=== PATIENT | female | born 1965 | race Caucasian/White ===

== ENCOUNTER 2018-01-25 20:32 | Inpatient (IN) | payer OTHER ==
--- NOTE | 2018-01-25 20:46 | C.PDOC ---
Time Seen by Provider: 01/25/18 20:43 Chief Complaint (Nursing): High Blood Pressure Past Medical History - Medical History PMH: HTN - Social History Hx Tobacco Use: No Hx Alcohol Use: No Hx Substance Use: No - Immunization History Hx Tetanus Toxoid Vaccination: No Hx Influenza Vaccination: Yes Hx Pneumococcal Vaccination: No Disposition Counseled Patient/Family Regarding: Studies Performed, Diagnosis - Disposition Disposition Time: 20:43
--- NOTE | 2018-01-25 20:51 | C.PDOC ---
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 No weakness, no slurred speech. No f/c/n/v. Tolerating own secretions Time Seen by Provider: 01/25/18 20:43 Chief Complaint (Nursing): High Blood Pressure History Per: Patient History/Exam Limitations: no limitations Onset/Duration Of Symptoms: Mins Current Symptoms Are (Timing): Gone Severity: Mild Pain Scale Rating Of: 3 Past Medical History Reviewed: Historical Data, Nursing Documentation, Vital Signs Vital Signs: Last Vital Signs Temp 98 F 01/25/18 20:35 Pulse 82 01/25/18 22:46 Resp 18 01/25/18 22:46 BP 129/87 01/25/18 22:46 Pulse Ox 100 01/25/18 22:46 - Medical History PMH: HTN Family History: States: No Known Family Hx - Social History Hx Tobacco Use: No Hx Alcohol Use: No Hx Substance Use: No - Immunization History Hx Tetanus Toxoid Vaccination: No Hx Influenza Vaccination: Yes Hx Pneumococcal Vaccination: No Review Of Systems Constitutional: Negative for: Fever, Chills Eyes: Negative for: Vision Change ENT: Negative for: Throat Pain Cardiovascular: Negative for: Chest Pain Respiratory: Negative for: Shortness of Breath Gastrointestinal: Negative for: Nausea, Vomiting Genitourinary: Negative for: Dysuria Musculoskeletal: Negative for: Back Pain Skin: Negative for: Rash Neurological: Negative for: Weakness Psych: Negative for: Anxiety Physical Exam - Physical Exam Appears: Non-toxic, No Acute Distress Skin: Warm, Dry Head: Normacephalic Eye(s): bilateral: Normal Inspection Oral Mucosa: Moist Tongue: Normal Appearing Lips: Normal Appearing Neck: Trachea Midline, Supple Chest: Symmetrical Cardiovascular: Rhythm Regular Respiratory: No Rales, No Rhonchi, No Wheezing Gastrointestinal/Abdominal: Soft, No Tenderness, No Distention Back: No CVA Tenderness Extremity: Normal ROM Extremity: Bilateral: Atraumatic, No Pedal Edema, Normal Color And Temperature Pulses: Left Dorsalis Pedis: Normal, Right Dorsalis Pedis: Normal Neurological/Psych: Oriented x3, Normal Speech, Normal Cognition Gait: Steady ED Course And Treatment - Laboratory Results Result Diagrams: 01/25/18 20:51 01/25/18 20:51 Pulse Ox Interpretation: Normal Critical Care Time - Critical Care Note Total Time (in mins): 30 Documented critical care: time excludes all time spent performing seperately billable procedures. NIHSS Stroke Scale - Date/Time Evaluation Performed Date Performed: 01/25/18 Time Performed: 20:39 When Was NIHSS Performed: Baseline - How Severe is the Stroke Level of Consciousness: 0=Alert LOC to Questions: 0=Both comments correct LOC to commands: 0=Obeys both correctly Best Gaze: 0=Normal Visual: 0=No visual loss Facial: 0=Normal Motor Arm - Left: 0=No drift Motor Arm - Right: 0=No drift Motor Leg - Left: 0=No drift Motor Leg - Right: 0=No drift Limb Ataxia: 0=Absent Sensory: 0=Normal Best Language: 0=No aphasia Dysarthia: 0=Normal articulation Extinction & Inattention (Neglect): 0=Normal, no object Score: 0 Disposition Discussed With : Dejuan Cabrera Comment: accepted the pt on his service and took over the care at 11:33 PM Doctor Will See Patient In The: Hospital Counseled Patient/Family Regarding: Studies Performed, Diagnosis - Disposition Disposition: HOSPITALIZED Disposition Time: 20:47 Condition: FAIR Forms: [facility] (Macedonian) - POA Present On Arrival: Poor Glycemic Control - Clinical Impression Clinical Impression: Hypertension, Paresthesia, TIA (transient ischemic attack) Decision To Admit - . Patient Diagnosis: Hypertension, Paresthesia, TIA (transient ischemic attack)
[2018-01-25 20:55] LABS: BASO # 0.1 K/uL (0.0-0.2); BASO % 0.8 % (0.0-2.0); EOS # 0.1 K/uL (0.0-0.7); EOS % 1.3 % (0.0-4.0); HEMOGLOBIN 13.3 g/dL (11.0-16.0); LYMPH # 4.7 K/uL (1.0-4.3); MEAN CELL VOLUME 85.2 fL (81.0-99.0); MEAN CORPUSCULAR HEMOGLOBIN 29.1 pg (27.0-31.0); MEAN CORPUSCULAR HGB CONC 34.2 g/dL (33.0-37.0); MEAN PLATELET VOLUME 9.5 fL (7.2-11.7); MONO # 0.9 K/uL (0.0-0.8); MONO % 9.5 % (0.0-10.0); NEUT # 3.6 K/uL (1.8-7.0); NEUT % 38.4 % (50.0-75.0); NRBC % 0.2 % (0.0-2.0); RBC 4.56 Mil/uL (3.80-5.20); RED CELL DISTRIBUTION WIDTH 13.2 % (11.5-14.5); WHITE BLOOD COUNT 9.4 K/uL (4.8-10.8)
[2018-01-25 21:05] LABS: INR 1.1; PROTHROMBIN TIME 11.7 SECONDS (9.7-12.2)
[2018-01-25 21:08] LABS: ALB/GLOB RATIO 1.5 (1.0-2.1); ALBUMIN 4.6 g/dL (3.5-5.0); ALT/SGPT 55 U/L (9-52); AST/SGOT 41 U/L (14-36); BLOOD UREA NITROGEN 18 mg/dL (7-17); CALCIUM 9.3 mg/dl (8.6-10.4); GFR AFRICAN-AMERICAN > 60; GFR NON-AFRICAN AMERICAN > 60; HDL CHOLESTEROL 41 mg/dL (30-70)
[2018-01-25] MEDS ORDERED: Sodium Chloride 0.9% 1,000 ML ONE (21:08)
[2018-01-25 21:19] LABS: LDL CHOLESTEROL 100 mg/dL (0-129)
[2018-01-26 04:07] LABS: BASO # 0.1 K/uL (0.0-0.2); BASO % 0.8 % (0.0-2.0); EOS # 0.1 K/uL (0.0-0.7); EOS % 0.9 % (0.0-4.0); HEMOGLOBIN 12.4 g/dL (11.0-16.0); LYMPH # 2.3 K/uL (1.0-4.3); LYMPH % 29.7 % (20.0-40.0); MEAN CELL VOLUME 85.1 fL (81.0-99.0); MEAN CORPUSCULAR HEMOGLOBIN 28.9 pg (27.0-31.0); MEAN CORPUSCULAR HGB CONC 33.9 g/dL (33.0-37.0); MEAN PLATELET VOLUME 9.3 fL (7.2-11.7); MONO # 0.6 K/uL (0.0-0.8); MONO % 7.3 % (0.0-10.0); NEUT # 4.7 K/uL (1.8-7.0); NEUT % 61.3 % (50.0-75.0); NRBC % 0.2 % (0.0-2.0); RBC 4.3 Mil/uL (3.80-5.20); RED CELL DISTRIBUTION WIDTH 13.1 % (11.5-14.5); WHITE BLOOD COUNT 7.7 K/uL (4.8-10.8)
[2018-01-26 04:22] LABS: ALB/GLOB RATIO 1.3 (1.0-2.1); ALBUMIN 4.1 g/dL (3.5-5.0); ALT/SGPT 53 U/L (9-52); AST/SGOT 33 U/L (14-36); BLOOD UREA NITROGEN 12 mg/dL (7-17); CALCIUM 8.6 mg/dl (8.6-10.4); GFR AFRICAN-AMERICAN > 60; GFR NON-AFRICAN AMERICAN > 60
[2018-01-26] MEDS ORDERED: Sodium Chloride 0.9% 1,000 ML ONE (07:26)
[2018-01-26] MEDS: Sodium Chloride 0.9% 1,000 ML IV SCH ×2 (07:27→13:28)
--- NOTE | 2018-01-26 08:09 | CT ---
Date of service: 01/25/2018 PROCEDURE: CT HEAD WITHOUT CONTRAST. HISTORY: Code Stroke COMPARISON: None available. TECHNIQUE: Axial computed tomography images were obtained through the head/brain without intravenous contrast. Radiation dose: Total exam DLP = 720 mGy-cm. This CT exam was performed using one or more of the following dose reduction techniques: Automated exposure control, adjustment of the mA and/or kV according to patient size, and/or use of iterative reconstruction technique. FINDINGS: HEMORRHAGE: No intracranial hemorrhage. BRAIN: Mild diffuse cerebral atrophy present consistent with the patient's age. Benign bilateral globus pallidus calcifications are present.Scattered focal lucencies in the subcortical and periventricular white matter suggestive for chronic microvascular ischemic change. VENTRICLES: Unremarkable. No hydrocephalus. CALVARIUM: Unremarkable. PARANASAL SINUSES: Unremarkable as visualized. No significant inflammatory changes. MASTOID AIR CELLS: Unremarkable as visualized. No inflammatory changes. OTHER FINDINGS: None. IMPRESSION: No acute intracranial abnormality. Mild diffuse cerebral atrophy. Chronic microvascular ischemic changes. If there is persistent concern for acute ischemic change, consider correlation with MRI. These findings were preliminarily reported at 9:04 p.m. on 01/25/[address]Navid Carey from [facility].
[2018-01-26] MEDS: Aspirin 325 mg EC Tablets PO SCH (09:53)
--- NOTE | 2018-01-26 10:32 | RAD ---
HISTORY: Code Stroke COMPARISON: None available. TECHNIQUE: Chest, one view. FINDINGS: Examination limited by habitus LUNGS: No focal consolidation. Please note that chest x-ray has limited sensitivity for the detection of pulmonary masses. PLEURA: No significant pleural effusion identified. No definite pneumothorax . CARDIOVASCULAR: The cardiomediastinal silhouette appears within normal limits of size. OSSEOUS STRUCTURES: Degenerative changes. VISUALIZED UPPER ABDOMEN: Unremarkable. OTHER FINDINGS: None. IMPRESSION: No focal consolidation, significant pleural effusion, or definite pneumothorax identified.
--- NOTE | 2018-01-26 13:37 | CP.PCM.PN ---
Subjective - Date & Time of Evaluation Date of Evaluation: 01/26/18 Time of Evaluation: 13:35 - Subjective Subjective: COMPREHENSIVE HISTORY & PHYSICAL EXAM HPI Patient is admitted for left-sided numbness of the face which started a few hours prior to admission. There is no motor or sensory deficits no seizures no syncope. Patient was evaluated by emergency room and also neuro hospitalist CAT scan of the head was negative for any acute infarct. Patient is now admitted for further workup. Patient with history of hypertension on medication. Patient numbness on the patient has resolved when presented to ER PAST HIST. PERSONAL HIST: Smoking. N Alcohol. N Allergy N Travel_- . FAMILY HIST : ROS : Constitutional: Negative for weight change, chills, night sweats, fatigue and usage of assist device. Eyes: Negative for redness, swelling, itching, discharge, vision changes, blurry vision, double vision, glaucoma, cataracts, Ears: Negative for hearing loss, ringing, , tinnitus, vertigo Nose: Negative for rhinorrhea, stuffiness, sniffing, itching, postnasal drip, discoloration, nasal congestion and epistaxis. Throat: Negative for throat clearing, sore throat, hoarseness, difficulty swallowing and difficulty speaking. Respiratory: Negative for cough, , sputum production, chest tightness, wheezing, pleuritic chest pain ,daytime somnolence, chronic cough, hemoptysis, snoring at night, Cardiovascular: Negative for chest pain, palpitations, orthopnea, PND, Edema of legs, leg cramps, angina, claudication, , irregular heartbeat, Neurology: Negative for irritability, muscle weakness, numbness and tingling, seizures, tremors, migraines, slurred speech, syncope, memory loss, mood changes , recurrent headaches Gastrointestinal: Negative for difficulty swallowing, diarrhea, constipation, black stools, rectal bleeding, nausea, flatulence, reflux, poor appetite, changes in bowel habits, abdominal pain Genitourinary: Negative for frequent urination, hematuria, discharge, incontinence, urinary retention, frequent UTI, Psychiatric: Negative for depression, anxiety/panic, suicidal tendencies, Musculoskeletal: Negative for swollen joints, back pain, , neck pain, morning stiffness of joints, . Skin: Negative for rash, ulcers, itching, dry skin and pigmented lesions. P/E: Constitutional: Appears stated age and in no apparent distress. Head: Normocephalic. Ears: External ear canals patent without inflammation. Tympanic membranes intact with normal light reflex and landmark. Eyes: Pupils are central, bilaterally equal, symmetrical and reacts to light with normal movements and no icterus or pallor. Nose: External nares are patent. Mucosa is pink Mouth-Throat: Good general appearance and condition. No post-pharyngeal/oropharyngeal erythema and tonsillar hypertrophy. Good dental hygiene. Neck-Lymphatic: Neck is supple with normal ROM, no thyromegaly, lymph nodes or masses. JVD is normal with no carotid bruit. Lungs: Clear to percussion and auscultation with bilateral normal air entry. Cardiovascular: S1 and S2 are normal with no murmurs, gallops and rub. GI Exam: No hepatomegaly. Abdomen is soft and non-tender. No Organomegaly , masses or hernias are evident and bowel sounds are normal and active. Neurology: Higher function and all cranial nerves intact, with no gross motor or sensory deficit. Superficial and deep reflexes are normal with downwards planters. No cerebellar deficit with normal gait. Musculoskeletal: No tender spots with normal curvature of the spine with no swelling or restricted ROM of the small and large joints. Extremities: Homans sign absent. Intact pulses with no pitting edema, calf tenderness or skin color changes. Skin: No rash, eruptions or abnormal skin pigmentation LAB/RADIOLOGY: ASSESMENT : History of transient ischemic episode, rule out cerebrovascular accident. Hypertension PLAN: Plan is ordered Objective - Vital Signs/Intake and Output Vital Signs (last 24 hours): Temp Pulse Resp BP Pulse Ox 98.2 F 89 18 149/94 H 100 01/26/18 10:27 01/26/18 10:28 01/26/18 10:27 01/26/18 10:27 01/26/18 10:27 - Medications Medications: Current Medications Amlodipine Besylate (Norvasc) 10 mg PO DAILY [facility] Last Admin: 01/26/18 11:01 Dose: 10 mg Aspirin (Ecotrin) 325 mg PO DAILY [facility] Last Admin: 01/26/18 09:53 Dose: 325 mg Heparin Sodium (Porcine) (Heparin) 5,000 units SC BID [facility] Last Admin: 01/26/18 09:53 Dose: 5,000 units Sodium Chloride (Sodium Chloride 0.9%) 1,000 mls @ 100 mls/hr IV .Q10H [facility] Last Admin: 01/26/18 13:28 Dose: 100 mls/hr Rosuvastatin Calcium (Crestor) 10 mg PO HS G[facility] - Labs Labs: 01/26/18 04:02 01/26/18 04:02 PT 11.7 SECONDS (9.7-12.2) 01/25/18 20:51 INR 1.1 01/25/18 20:51 APTT 33 SECONDS (21-34) 01/25/18 20:51
--- NOTE | 2018-01-26 13:38 | CP.PCM.HP ---
History of Present Illness - History of Present Illness History of Present Illness: COMPREHENSIVE HISTORY & PHYSICAL EXAM HPI Patient is admitted for left-sided numbness of the face which started a few hours prior to admission. There is no motor or sensory deficits no seizures no syncope. Patient was evaluated by emergency room and also neuro hospitalist CAT scan of the head was negative for any acute infarct. Patient is now admitted for further workup. Patient with history of hypertension on medication. Patient numbness on the patient has resolved when presented to ER PAST HIST. PERSONAL HIST: Smoking. N Alcohol. N Allergy N Travel_- . FAMILY HIST : ROS : Constitutional: Negative for weight change, chills, night sweats, fatigue and usage of assist device. Eyes: Negative for redness, swelling, itching, discharge, vision changes, blurry vision, double vision, glaucoma, cataracts, Ears: Negative for hearing loss, ringing, , tinnitus, vertigo Nose: Negative for rhinorrhea, stuffiness, sniffing, itching, postnasal drip, discoloration, nasal congestion and epistaxis. Throat: Negative for throat clearing, sore throat, hoarseness, difficulty swallowing and difficulty speaking. Respiratory: Negative for cough, , sputum production, chest tightness, wheezing, pleuritic chest pain ,daytime somnolence, chronic cough, hemoptysis, snoring at night, Cardiovascular: Negative for chest pain, palpitations, orthopnea, PND, Edema of legs, leg cramps, angina, claudication, , irregular heartbeat, Neurology: Negative for irritability, muscle weakness, numbness and tingling, seizures, tremors, migraines, slurred speech, syncope, memory loss, mood changes , recurrent headaches Gastrointestinal: Negative for difficulty swallowing, diarrhea, constipation, black stools, rectal bleeding, nausea, flatulence, reflux, poor appetite, changes in bowel habits, abdominal pain Genitourinary: Negative for frequent urination, hematuria, discharge, incontinence, urinary retention, frequent UTI, Psychiatric: Negative for depression, anxiety/panic, suicidal tendencies, Musculoskeletal: Negative for swollen joints, back pain, , neck pain, morning stiffness of joints, . Skin: Negative for rash, ulcers, itching, dry skin and pigmented lesions. P/E: Constitutional: Appears stated age and in no apparent distress. Head: Normocephalic. Ears: External ear canals patent without inflammation. Tympanic membranes intact with normal light reflex and landmark. Eyes: Pupils are central, bilaterally equal, symmetrical and reacts to light with normal movements and no icterus or pallor. Nose: External nares are patent. Mucosa is pink Mouth-Throat: Good general appearance and condition. No post-pharyngeal/oropharyngeal erythema and tonsillar hypertrophy. Good dental hygiene. Neck-Lymphatic: Neck is supple with normal ROM, no thyromegaly, lymph nodes or masses. JVD is normal with no carotid bruit. Lungs: Clear to percussion and auscultation with bilateral normal air entry. Cardiovascular: S1 and S2 are normal with no murmurs, gallops and rub. GI Exam: No hepatomegaly. Abdomen is soft and non-tender. No Organomegaly , masses or hernias are evident and bowel sounds are normal and active. Neurology: Higher function and all cranial nerves intact, with no gross motor or sensory deficit. Superficial and deep reflexes are normal with downwards planters. No cerebellar deficit with normal gait. Musculoskeletal: No tender spots with normal curvature of the spine with no swelling or restricted ROM of the small and large joints. Extremities: Homans sign absent. Intact pulses with no pitting edema, calf tenderness or skin color changes. Skin: No rash, eruptions or abnormal skin pigmentation LAB/RADIOLOGY: ASSESMENT : History of transient ischemic episode, rule out cerebrovascular accident. Hypertension PLAN: Plan is ordered Present on Admission - Present on Admission Any Indicators Present on Admission: No Past Patient History - Past Social History Smoking Status: Never Smoked - CARDIAC Hx Hypertension: Yes - MUSCULOSKELETAL/RHEUMATOLOGICAL Hx Back Pain: Yes Hx Falls: No - PSYCHIATRIC Hx Substance Use: No - ANESTHESIA Hx Anesthesia: No Hx Anesthesia Reactions: No Meds Allergies/Adverse Reactions: Allergies Allergy/AdvReac Type Severity Reaction Status Date / Time No Known Allergies Allergy Verified 01/25/18 20:49 Results - Vital Signs Recent Vital Signs: Last Vital Signs Temp 98.2 F 01/26/18 10:27 Pulse 89 01/26/18 10:28 Resp 18 01/26/18 10:27 BP 149/94 H 01/26/18 10:27 Pulse Ox 100 01/26/18 10:27 - Labs Result Diagrams: 01/26/18 04:02 01/26/18 04:02 Labs: Laboratory Results - last 24 hr 01/25/18 01/25/18 01/25/18 20:44 20:51 20:51 WBC 9.4 RBC 4.56 Hgb 13.3 Hct 38.8 MCV 85.2 MCH 29.1 MCHC 34.2 RDW 13.2 Plt Count 253 MPV 9.5 Neut % (Auto) 38.4 L Lymph % (Auto) 50.0 H [place] % (Auto) 9.5 Eos % (Auto) 1.3 Baso % (Auto) 0.8 Neut # (Auto) 3.6 Lymph # (Auto) 4.7 H [place] # (Auto) 0.9 H Eos # (Auto) 0.1 Baso # (Auto) 0.1 PT 11.7 INR 1.1 APTT 33 Sodium Potassium Chloride Carbon Dioxide Anion Gap BUN Creatinine Est GFR ( Amer) Est GFR (Non-Af Amer) POC Glucose (mg/dL) 141 H Random Glucose Hemoglobin A1c Calcium Total Bilirubin AST ALT Alkaline Phosphatase Troponin I Total Protein Albumin Globulin Albumin/Globulin Ratio Triglycerides Cholesterol LDL Cholesterol Direct HDL Cholesterol Blood Type Antibody Screen 01/25/18 01/25/18 01/25/18 20:51 20:51 21:36 WBC RBC Hgb Hct MCV MCH MCHC RDW Plt Count MPV Neut % (Auto) Lymph % (Auto) [place] % (Auto) Eos % (Auto) Baso % (Auto) Neut # (Auto) Lymph # (Auto) [place] # (Auto) Eos # (Auto) Baso # (Auto) PT INR APTT Sodium 141 Potassium 3.7 Chloride 102 Carbon Dioxide 28 Anion Gap 15 BUN 18 H Creatinine 0.7 Est GFR ( Amer) > 60 Est GFR (Non-Af Amer) > 60 POC Glucose (mg/dL) Random Glucose 158 H Hemoglobin A1c 6.1 Calcium 9.3 Total Bilirubin 0.4 AST 41 H ALT 55 H Alkaline Phosphatase 97 Troponin I < 0.0120 Total Protein 7.7 Albumin 4.6 Globulin 3.1 Albumin/Globulin Ratio 1.5 Triglycerides 293 H Cholesterol 195 LDL Cholesterol Direct 100 HDL Cholesterol 41 Blood Type O NEGATIVE Antibody Screen Negative 01/26/18 01/26/18 01/26/18 04:02 04:02 04:02 WBC 7.7 RBC 4.30 Hgb 12.4 Hct 36.6 MCV 85.1 MCH 28.9 MCHC 33.9 RDW 13.1 Plt Count 214 MPV 9.3 Neut % (Auto) 61.3 Lymph % (Auto) 29.7 [place] % (Auto) 7.3 Eos % (Auto) 0.9 Baso % (Auto) 0.8 Neut # (Auto) 4.7 Lymph # (Auto) 2.3 [place] # (Auto) 0.6 Eos # (Auto) 0.1 Baso # (Auto) 0.1 PT INR APTT Sodium 143 Potassium 3.9 Chloride 107 Carbon Dioxide 24 Anion Gap 15 BUN 12 Creatinine 0.5 L Est GFR ( Amer) > 60 Est GFR (Non-Af Amer) > 60 POC Glucose (mg/dL) Random Glucose 118 H Hemoglobin A1c Calcium 8.6 Total Bilirubin 0.4 AST 33 ALT 53 H Alkaline Phosphatase 79 Troponin I < 0.0120 Total Protein 7.1 Albumin 4.1 Globulin 3.1 Albumin/Globulin Ratio 1.3 Triglycerides Cholesterol LDL Cholesterol Direct HDL Cholesterol Blood Type Antibody Screen
[2018-01-26 16:39] VITALS: RESP 20
--- NOTE | 2018-01-26 17:28 | MRI ---
Date of service: 01/26/2018 PROCEDURE: MRI BRAIN WITH AND WITHOUT CONTRAST HISTORY: cva COMPARISON: Noncontrast head CT 01/25/2018. TECHNIQUE: Multiplanar, multisequence MR images of the brain were obtained with and without intravenous contrast enhancement. FINDINGS: HEMORRHAGE: None DWI: No evidence of an acute or early subacute infarction. BRAIN PARENCHYMA: Trace expansion of the ventricular sulcal and cisternal spaces appreciated compatible with minimal diffuse cerebral atrophy. Normal corticomedullary differentiation is appreciated. No suspicious white matter abnormality identified throughout, including the brainstem and cerebellum. There is no mass effect or suspicious extra-axial fluid collection appreciated. Midline brain anatomy remains unremarkable. Bilateral basal ganglia calcifications are reiterated. ENHANCEMENT: No abnormal intracranial enhancement. VENTRICLES: Unremarkable. No hydrocephalus. CRANIUM: Unremarkable. ORBITS: Grossly unremarkable. PARANASAL SINUSES/MASTOIDS: Clear VASCULAR SYSTEM: Skull base flow voids intact. OTHER FINDINGS: None . IMPRESSION: Reiteration of the minimal age-appropriate diffuse cerebral atrophy. No abnormal intracranial enhancement. No acute intracranial findings.
[2018-01-27] MEDS: Aspirin 325 mg EC Tablets PO SCH (09:11)
--- NOTE | 2018-01-27 14:32 | CP.PCM.HP ---
History of Present Illness - History of Present Illness History of Present Illness: COMPREHENSIVE HISTORY & PHYSICAL EXAM HPI Patient is admitted for left-sided numbness of the face which started a few hours prior to admission. There is no motor or sensory deficits no seizures no syncope. Patient was evaluated by emergency room and also neuro hospitalist CAT scan of the head was negative for any acute infarct. Patient is now admitted for further workup. Patient with history of hypertension on medication. Patient numbness on the patient has resolved when presented to ER PAST HIST. PERSONAL HIST: Smoking. N Alcohol. N Allergy N Travel_- . FAMILY HIST : ROS : Constitutional: Negative for weight change, chills, night sweats, fatigue and usage of assist device. Eyes: Negative for redness, swelling, itching, discharge, vision changes, blurry vision, double vision, glaucoma, cataracts, Ears: Negative for hearing loss, ringing, , tinnitus, vertigo Nose: Negative for rhinorrhea, stuffiness, sniffing, itching, postnasal drip, discoloration, nasal congestion and epistaxis. Throat: Negative for throat clearing, sore throat, hoarseness, difficulty swallowing and difficulty speaking. Respiratory: Negative for cough, , sputum production, chest tightness, wheezing, pleuritic chest pain ,daytime somnolence, chronic cough, hemoptysis, snoring at night, Cardiovascular: Negative for chest pain, palpitations, orthopnea, PND, Edema of legs, leg cramps, angina, claudication, , irregular heartbeat, Neurology: Negative for irritability, muscle weakness, numbness and tingling, seizures, tremors, migraines, slurred speech, syncope, memory loss, mood changes , recurrent headaches Gastrointestinal: Negative for difficulty swallowing, diarrhea, constipation, black stools, rectal bleeding, nausea, flatulence, reflux, poor appetite, changes in bowel habits, abdominal pain Genitourinary: Negative for frequent urination, hematuria, discharge, incontinence, urinary retention, frequent UTI, Psychiatric: Negative for depression, anxiety/panic, suicidal tendencies, Musculoskeletal: Negative for swollen joints, back pain, , neck pain, morning stiffness of joints, . Skin: Negative for rash, ulcers, itching, dry skin and pigmented lesions. P/E: Constitutional: Appears stated age and in no apparent distress. Head: Normocephalic. Ears: External ear canals patent without inflammation. Tympanic membranes intact with normal light reflex and landmark. Eyes: Pupils are central, bilaterally equal, symmetrical and reacts to light with normal movements and no icterus or pallor. Nose: External nares are patent. Mucosa is pink Mouth-Throat: Good general appearance and condition. No post-pharyngeal/oropharyngeal erythema and tonsillar hypertrophy. Good dental hygiene. Neck-Lymphatic: Neck is supple with normal ROM, no thyromegaly, lymph nodes or masses. JVD is normal with no carotid bruit. Lungs: Clear to percussion and auscultation with bilateral normal air entry. Cardiovascular: S1 and S2 are normal with no murmurs, gallops and rub. GI Exam: No hepatomegaly. Abdomen is soft and non-tender. No Organomegaly , masses or hernias are evident and bowel sounds are normal and active. Neurology: Higher function and all cranial nerves intact, with no gross motor or sensory deficit. Superficial and deep reflexes are normal with downwards planters. No cerebellar deficit with normal gait. Musculoskeletal: No tender spots with normal curvature of the spine with no swelling or restricted ROM of the small and large joints. Extremities: Homans sign absent. Intact pulses with no pitting edema, calf tenderness or skin color changes. Skin: No rash, eruptions or abnormal skin pigmentation LAB/RADIOLOGY: ASSESMENT : History of transient ischemic episode, rule out cerebrovascular accident. Hypertension PLAN: Plan is ordered Present on Admission - Present on Admission Any Indicators Present on Admission: No Past Patient History - Past Social History Smoking Status: Never Smoked - CARDIAC Hx Hypertension: Yes - MUSCULOSKELETAL/RHEUMATOLOGICAL Hx Back Pain: Yes Hx Falls: No - PSYCHIATRIC Hx Substance Use: No - ANESTHESIA Hx Anesthesia: No Hx Anesthesia Reactions: No Meds Allergies/Adverse Reactions: Allergies Allergy/AdvReac Type Severity Reaction Status Date / Time No Known Allergies Allergy Verified 01/25/18 20:49 Results - Vital Signs Recent Vital Signs: Last Vital Signs Temp 98.4 F 01/27/18 08:20 Pulse 67 01/27/18 08:20 Resp 20 01/27/18 08:20 BP 136/89 01/27/18 08:20 Pulse Ox 99 01/27/18 08:20 - Labs Result Diagrams: 01/26/18 04:02 01/26/18 04:02 Labs: Laboratory Results - last 24 hr 01/26/18 01/27/18 01/27/18 21:17 06:42 11:07 POC Glucose (mg/dL) 120 H 147 H 101
--- NOTE | 2018-01-27 14:33 | CP.PCM.PN ---
Subjective - Date & Time of Evaluation Date of Evaluation: 01/27/18 Time of Evaluation: 14:32 - Subjective Subjective: currently patient has no further symptoms of numbness in the left face. Vital signs are stable Neuro workup so is negative. We will confirm with the neurology. Objective - Vital Signs/Intake and Output Vital Signs (last 24 hours): Temp Pulse Resp BP Pulse Ox 98.4 F 67 20 136/89 99 01/27/18 08:20 01/27/18 08:20 01/27/18 08:20 01/27/18 08:20 01/27/18 08:20 - Medications Medications: Current Medications Amlodipine Besylate (Norvasc) 10 mg PO DAILY [facility] Last Admin: 01/27/18 09:11 Dose: 10 mg Aspirin (Ecotrin) 325 mg PO DAILY [facility] Last Admin: 01/27/18 09:11 Dose: 325 mg Heparin Sodium (Porcine) (Heparin) 5,000 units SC BID [facility] Last Admin: 01/27/18 09:11 Dose: 5,000 units Sodium Chloride (Sodium Chloride 0.9%) 1,000 mls @ 100 mls/hr IV .Q10H [facility] Last Admin: 01/26/18 13:28 Dose: 100 mls/hr Rosuvastatin Calcium (Crestor) 10 mg PO HS [facility] Last Admin: 01/26/18 21:49 Dose: 10 mg - Labs Labs: 01/26/18 04:02 01/26/18 04:02 PT 11.7 SECONDS (9.7-12.2) 01/25/18 20:51 INR 1.1 01/25/18 20:51 APTT 33 SECONDS (21-34) 01/25/18 20:51
--- NOTE | 2018-01-27 14:42 | CP.PCM.DIS ---
Provider - Provider Date of Admission: 01/25/18 23:27 Attending physician: Dejuan Cabrera MD Time Spent in preparation of Discharge (in minutes): 35 Hospital Course - Lab Results Lab Results: Most Recent Lab Values WBC 7.7 K/uL (4.8-10.8) 01/26/18 04:02 RBC 4.30 Mil/uL (3.80-5.20) 01/26/18 04:02 Hgb 12.4 g/dL (11.0-16.0) 01/26/18 04:02 Hct 36.6 % (34.0-47.0) 01/26/18 04:02 MCV 85.1 fL (81.0-99.0) 01/26/18 04:02 MCH 28.9 pg (27.0-31.0) 01/26/18 04:02 MCHC 33.9 g/dL (33.0-37.0) 01/26/18 04:02 RDW 13.1 % (11.5-14.5) 01/26/18 04:02 Plt Count 214 K/uL (130-400) 01/26/18 04:02 MPV 9.3 fL (7.2-11.7) 01/26/18 04:02 Neut % (Auto) 61.3 % (50.0-75.0) 01/26/18 04:02 Lymph % (Auto) 29.7 % (20.0-40.0) 01/26/18 04:02 Rock % (Auto) 7.3 % (0.0-10.0) 01/26/18 04:02 Eos % (Auto) 0.9 % (0.0-4.0) 01/26/18 04:02 Baso % (Auto) 0.8 % (0.0-2.0) 01/26/18 04:02 Neut # (Auto) 4.7 K/uL (1.8-7.0) 01/26/18 04:02 Lymph # (Auto) 2.3 K/uL (1.0-4.3) 01/26/18 04:02 Rock # (Auto) 0.6 K/uL (0.0-0.8) 01/26/18 04:02 Eos # (Auto) 0.1 K/uL (0.0-0.7) 01/26/18 04:02 Baso # (Auto) 0.1 K/uL (0.0-0.2) 01/26/18 04:02 PT 11.7 SECONDS (9.7-12.2) 01/25/18 20:51 INR 1.1 01/25/18 20:51 APTT 33 SECONDS (21-34) 01/25/18 20:51 Sodium 143 mmol/L (132-148) 01/26/18 04:02 Potassium 3.9 mmol/L (3.6-5.2) 01/26/18 04:02 Chloride 107 mmol/L (98-107) 01/26/18 04:02 Carbon Dioxide 24 mmol/L (22-30) 01/26/18 04:02 Anion Gap 15 (10-20) 01/26/18 04:02 BUN 12 mg/dL (7-17) 01/26/18 04:02 Creatinine 0.5 mg/dL (0.7-1.2) L 01/26/18 04:02 Est GFR ( Amer) > 60 01/26/18 04:02 Est GFR (Non-Af Amer) > 60 01/26/18 04:02 POC Glucose (mg/dL) 101 mg/dL (65-110) 01/27/18 11:07 Random Glucose 118 mg/dL (65-105) H 01/26/18 04:02 Hemoglobin A1c 6.1 % (4.2-6.5) 01/25/18 20:51 Calcium 8.6 mg/dl (8.6-10.4) 01/26/18 04:02 Total Bilirubin 0.4 mg/dL (0.2-1.3) 01/26/18 04:02 AST 33 U/L (14-36) 01/26/18 04:02 ALT 53 U/L (9-52) H 01/26/18 04:02 Alkaline Phosphatase 79 U/L (38-126) 01/26/18 04:02 Troponin I < 0.0120 ng/mL (0.00-0.120) 01/26/18 04:02 Total Protein 7.1 g/dL (6.3-8.3) 01/26/18 04:02 Albumin 4.1 g/dL (3.5-5.0) 01/26/18 04:02 Globulin 3.1 gm/dL (2.2-3.9) 01/26/18 04:02 Albumin/Globulin Ratio 1.3 (1.0-2.1) 01/26/18 04:02 Triglycerides 293 mg/dL (0-149) H 01/25/18 20:51 Cholesterol 195 mg/dL (0-199) 01/25/18 20:51 LDL Cholesterol Direct 100 mg/dL (0-129) 01/25/18 20:51 HDL Cholesterol 41 mg/dL (30-70) 01/25/18 20:51 Blood Type O NEGATIVE 01/25/18 21:36 Antibody Screen Negative 01/25/18 21:36 - Hospital Course Hospital Course: COMPREHENSIVE HISTORY & PHYSICAL EXAM HPI Patient is admitted for left-sided numbness of the face which started a few hours prior to admission. There is no motor or sensory deficits no seizures no syncope. Patient was evaluated by emergency room and also neuro hospitalist CAT scan of the head was negative for any acute infarct. Patient is now admitted for further workup. Patient with history of hypertension on medication. Patient numbness on the patient has resolved when presented to ER patient had a carotid Doppler and MRI of the brain which were negative neurology was consulted and patient clear for discharge patient had no further symptoms we will discharge the patient will follow the patient Discharge Plan - Follow Up Plan Condition: FAIR Disposition: HOME/ ROUTINE
--- NOTE | 2018-01-27 15:58 | CP.PCM.CON ---
History of Present Illness - History of Present Illness History of Present Illness: 52 yr old woman who i was consulted for code stroke, due to acute onset of numbness in her left arm and leg, that resolved several hours after being in the Er. Miss hilton today denies any numbness or weakness, aphasia, headache, visual obscurations. She denies a prior episode, or prior stroke. PMH/PSH:HTN FH/SH: no tobacco, no etoh. All: nkda. On exam: Normal neurological examination. No deficits noted. Past Patient History - Past Social History Smoking Status: Never Smoked - CARDIAC Hx Hypertension: Yes - MUSCULOSKELETAL/RHEUMATOLOGICAL Hx Back Pain: Yes Hx Falls: No - PSYCHIATRIC Hx Substance Use: No - ANESTHESIA Hx Anesthesia: No Hx Anesthesia Reactions: No Meds Allergies/Adverse Reactions: Allergies Allergy/AdvReac Type Severity Reaction Status Date / Time No Known Allergies Allergy Verified 01/25/18 20:49 - Medications Medications: Current Medications Amlodipine Besylate (Norvasc) 10 mg PO DAILY [facility] Last Admin: 01/27/18 09:11 Dose: 10 mg Aspirin (Ecotrin) 325 mg PO DAILY [facility] Last Admin: 01/27/18 09:11 Dose: 325 mg Heparin Sodium (Porcine) (Heparin) 5,000 units SC BID [facility] Last Admin: 01/27/18 09:11 Dose: 5,000 units Sodium Chloride (Sodium Chloride 0.9%) 1,000 mls @ 100 mls/hr IV .Q10H [facility] Last Admin: 01/26/18 13:28 Dose: 100 mls/hr Rosuvastatin Calcium (Crestor) 10 mg PO HS [facility] Last Admin: 01/26/18 21:49 Dose: 10 mg Results - Vital Signs Recent Vital Signs: Last Vital Signs Temp 98.4 F 01/27/18 08:20 Pulse 67 01/27/18 08:20 Resp 20 01/27/18 08:20 BP 136/89 01/27/18 08:20 Pulse Ox 99 01/27/18 08:20 - Labs Result Diagrams: 01/26/18 04:02 01/26/18 04:02 Labs: Laboratory Results - last 24 hr 01/26/18 01/27/18 01/27/18 21:17 06:42 11:07 POC Glucose (mg/dL) 120 H 147 H 101 Assessment & Plan - Assessment and Plan (Free Text) Assessment: CT head: normal MRI Brain: normal, no strokes, no diffusion changes. A/P: 52 yr old woman with no tia or stroke on MRI brain, but who has refractory hypertension. Plan; 1. No further stroke workup needed. 2. COntrol hypertension. Thank you Dr. gibson
--- NOTE | 2018-01-27 16:04 | CP.PCM.PN ---
Subjective - Date & Time of Evaluation Date of Evaluation: 01/27/18 Time of Evaluation: 16:04 - Subjective Subjective: PT CLEARED FOR D/C HOME TODAY PER Sonia NAVARRETE. TO F/U WITH DR. NAVARRETE IN THE OFFICE. NEW RX GIVEN. NO FURTHER ORDERS. -FOLLOW UP WITH DR. NAVARRETE OR YOUR PRIMARY DOCTOR IN THE OFFICE WITHIN 5-7 DAYS- --CALL THE OFFICE TO MAKE AN APPOINTMENT. -CONTINUE YOUR HOME MEDICATIONS. -NEW PRESCRIPTION INCLUDES: -CRESTOR 5 MG (FOR HEART AND CHOLESTEROL)---TAKE 1 TABLET BY MOUTH AT BEDTIME. -AMLODIPINE 10 MG (FOR YOUR BLOOD PRESSURE)---TAKE 1 TABLET BY MOUTH ONCE A DAY ---THIS WILL REPLACE YOUR AMLODIPINE AT HOME (NOTE, THE DOSAGE HAS BEEN INCREASED). -FOR FURTHER QUESTIONS OR CONCERNS, CONTACT DR. NAVARRETE. Objective - Vital Signs/Intake and Output Vital Signs (last 24 hours): Temp Pulse Resp BP Pulse Ox 98.4 F 67 20 136/89 99 01/27/18 08:20 01/27/18 08:20 01/27/18 08:20 01/27/18 08:20 01/27/18 08:20 - Medications Medications: Current Medications Amlodipine Besylate (Norvasc) 10 mg PO DAILY [facility] Last Admin: 01/27/18 09:11 Dose: 10 mg Aspirin (Ecotrin) 325 mg PO DAILY [facility] Last Admin: 01/27/18 09:11 Dose: 325 mg Heparin Sodium (Porcine) (Heparin) 5,000 units SC BID [facility] Last Admin: 01/27/18 09:11 Dose: 5,000 units Sodium Chloride (Sodium Chloride 0.9%) 1,000 mls @ 100 mls/hr IV .Q10H [facility] Last Admin: 01/26/18 13:28 Dose: 100 mls/hr Rosuvastatin Calcium (Crestor) 10 mg PO HS [facility] Last Admin: 01/26/18 21:49 Dose: 10 mg - Labs Labs: 01/26/18 04:02 01/26/18 04:02 PT 11.7 SECONDS (9.7-12.2) 01/25/18 20:51 INR 1.1 01/25/18 20:51 APTT 33 SECONDS (21-34) 01/25/18 20:51
[2018-01-27 16:17] VITALS: BP 138/85; PULSE 79; TEMP 98.1; O2SAT 98
== END 2018-01-27 17:13 | disposition home or self-care (01) | DRG 93 ==
LOC: C.ER 20:32 → C.9E 23:27 → UNDOADMIN 01-26 00:02 → C.6T 01-26 09:38
PROVIDERS: ADMIT Internal Medicine Cardiovascular Disease; ATTEND Internal Medicine Cardiovascular Disease
DX: R20.0 Anesthesia of skin (principal); I10 Essential (primary) hypertension; R20.2 Paresthesia of skin

== ENCOUNTER 2018-02-03 22:42 | Emergency (ER) | payer OTHER ==
[2018-02-03 22:49] VITALS: TEMP 98.1
--- NOTE | 2018-02-03 23:04 | C.PDOC ---
History Of Present Illness 52 year old female with a history of hypertension presents to the emergency department with complaints of elevated blood pressure. Patient states that she takes Lisinopril in the morning and Norvasc in the evening. Some mornings she does not take Lisinopril due to her blood pressure being 135/95, yet today it was higher so she took it. She reports taking Norvasc at 3PM today but her blood pressure remained high so she presented here. She reports a mild headache which is now gone, but otherwise denies chest pain and shortness of breath. Patient states that she was hospitalized last week for uncontrolled hypertension and a questionable TIA. Time Seen by Provider: 02/03/18 22:53 Chief Complaint (Nursing): High Blood Pressure History Per: Patient History/Exam Limitations: no limitations Onset/Duration Of Symptoms: Hrs Current Symptoms Are (Timing): Still Present Associated Symptoms: Headache Past Medical History Reviewed: Historical Data, Nursing Documentation, Vital Signs Vital Signs: Last Vital Signs Temp 98.1 F 02/03/18 22:45 Pulse 92 H 02/03/18 23:49 Resp 20 02/03/18 22:45 BP 161/82 H 02/03/18 23:27 Pulse Ox 100 02/03/18 23:49 - Medical History PMH: HTN Surgical History: Back Surgery Family History: States: No Known Family Hx - Social History Hx Tobacco Use: No Hx Alcohol Use: No Hx Substance Use: No - Immunization History Hx Tetanus Toxoid Vaccination: No Hx Influenza Vaccination: Yes Hx Pneumococcal Vaccination: No Review Of Systems Cardiovascular: Negative for: Chest Pain Respiratory: Negative for: Shortness of Breath Neurological: Positive for: Headache Physical Exam - Physical Exam Appears: Non-toxic, No Acute Distress (comfortable) Skin: Warm, Dry Head: Atraumatic, Tenderness Eye(s): bilateral: Normal Inspection Neck: Normal, Supple Chest: Symmetrical Cardiovascular: Rhythm Regular, No Murmur Respiratory: Normal Breath Sounds, No Rales, No Rhonchi, No Wheezing Gastrointestinal/Abdominal: Normal Exam, Soft, No Tenderness, No Guarding, No Rebound Extremity: Normal ROM (all extremities) Neurological/Psych: Oriented x3, Normal Speech, Normal Cognition, Normal Motor, Normal Sensation, Normal Reflexes ED Course And Treatment - Laboratory Results Result Diagrams: 02/03/18 23:24 02/03/18 23:24 Lab Interpretation: Normal ECG: Interpreted By Me ECG Rhythm: Sinus Rhythm, ST/T Changes (nonspecific slurring) O2 Sat by Pulse Oximetry: 100 (RA) Pulse Ox Interpretation: Normal Progress Note: Patient treated with Lopressor 25mg po. Reevaluation Time: 23:57 Reassessment Condition: Improved (BP 121/75, HR 80) Medical Decision Making Medical Decision Making: Plan: EKG CMP CBC Lopressor 50mg PO Disposition Counseled Patient/Family Regarding: Studies Performed, Diagnosis, Need For Followup, Rx Given - Disposition Referrals: Kartik King MD [Staff Provider] - Disposition: HOME/ ROUTINE Disposition Time: 23:57 Condition: IMPROVED Prescriptions: Metoprolol Tartrate [Lopressor] 25 mg PO BID #60 tab Instructions: High Blood Pressure (DC) Forms: [employer] (American) Print Language: CHINESE - Clinical Impression Clinical Impression: Hypertension - Scribe Statement The provider has reviewed the documentation as recorded by the Scribe (Franky Diaz) Provider Attestation: All medical record entries made by the Scribe were at my direction and personally dictated by me. I have reviewed the chart and agree that the record accurately reflects my personal performance of the history, physical exam, medical decision making, and the department course for this patient. I have also personally directed, reviewed, and agree with the discharge instructions and disposition.
[2018-02-03 23:27] LABS: BASO # 0.1 K/uL (0.0-0.2); BASO % 0.9 % (0.0-2.0); EOS # 0.1 K/uL (0.0-0.7); EOS % 1.1 % (0.0-4.0); HEMOGLOBIN 13.2 g/dL (11.0-16.0); LYMPH # 3.5 K/uL (1.0-4.3); LYMPH % 39.1 % (20.0-40.0); MEAN CELL VOLUME 85.5 fL (81.0-99.0); MEAN CORPUSCULAR HEMOGLOBIN 29.6 pg (27.0-31.0); MEAN CORPUSCULAR HGB CONC 34.7 g/dL (33.0-37.0); MEAN PLATELET VOLUME 9.3 fL (7.2-11.7); MONO # 0.6 K/uL (0.0-0.8); MONO % 7.3 % (0.0-10.0); NEUT # 4.6 K/uL (1.8-7.0); NEUT % 51.6 % (50.0-75.0); RBC 4.45 Mil/uL (3.80-5.20); WHITE BLOOD COUNT 8.9 K/uL (4.8-10.8)
[2018-02-03 23:43] LABS: ALB/GLOB RATIO 1.5 (1.0-2.1); ALBUMIN 4.9 g/dL (3.5-5.0); ALT/SGPT 44 U/L (9-52); AST/SGOT 39 U/L (14-36); BLOOD UREA NITROGEN 17 mg/dL (7-17); CALCIUM 9.7 mg/dl (8.6-10.4); GFR NON-AFRICAN AMERICAN > 60
[2018-02-04 00:15] VITALS: BP 169/81; PULSE 98; RESP 22; O2SAT 98
--- NOTE | 2018-02-04 20:06 | CARD ---
APPROVED REPORT Date of service: 02/03/2018 EKG Measurement Heart [id number] <Conclusion> Normal sinus rhythm Possible Left atrial enlargement Nonspecific ST and T wave abnormality Abnormal ECG
== END 2018-02-04 00:15 | disposition home or self-care (01) ==
LOC: C.ER 22:42
DX: I10 Essential (primary) hypertension (principal)

== ENCOUNTER 2018-02-09 20:21 | Observation (INO) | payer OTHER ==
--- NOTE | 2018-02-09 21:22 | C.PDOC ---
History Of Present Illness 52 yr old male w/ hx of HTN, HLD, recent TIA p/w HTN, CP and Headache. Pt notes Headache, 3 hours prior, along with CP 2/10, center of chest without radiation, non-pressure like, without N/V or diaphoresis. No orthopnea, PND or leg swelling. No recent surgery or trauma. CHAVARRIA is not worst of life or sudden in onset. Pt notes that she checked her pressure after she had a CHAVARRIA and noted it to be 200+/100. She notes that after he BP improved after taking metoprolol her CHAVARRIA improved but she was still having some CP. No trauma or falls. No fever, chills or night sweats. No neck stiffness. No FND. No GI or complaints. No abnl vaginal d/c. No other complaints. Time Seen by Provider: 02/09/18 21:21 Chief Complaint (Nursing): High Blood Pressure Past Medical History Vital Signs: Last Vital Signs Temp 98.1 F 02/09/18 23:48 Pulse 80 02/09/18 23:48 Resp 20 02/09/18 23:48 BP 145/79 02/09/18 23:48 Pulse Ox 100 02/09/18 23:48 - Medical History PMH: HTN Surgical History: Back Surgery Family History: States: Unknown Family Hx - Social History Hx Tobacco Use: No Hx Alcohol Use: No Hx Substance Use: No - Immunization History Hx Tetanus Toxoid Vaccination: No Hx Influenza Vaccination: Yes Hx Pneumococcal Vaccination: No Review Of Systems Constitutional: Negative for: Fever Eyes: Negative for: Pain ENT: Negative for: Ear Pain Cardiovascular: Positive for: Chest Pain Respiratory: Negative for: Cough Gastrointestinal: Negative for: Nausea Genitourinary: Negative for: Dysuria Musculoskeletal: Negative for: Neck Pain Neurological: Positive for: Headache Physical Exam - Physical Exam Appears: Well, No Acute Distress Skin: Normal Color Head: Atraumatic, No Tenderness, Other (no meningeal signs) Eye(s): bilateral: Normal Inspection Ear(s): Left: Normal, Right: Normal Nose: Normal Oral Mucosa: Moist Tongue: Normal Appearing Lips: Normal Appearing Throat: Normal Neck: Normal, Normal ROM, Trachea Midline, No Midline Cervical Tenderness Chest: Symmetrical Cardiovascular: Rhythm Regular Respiratory: Normal Breath Sounds Gastrointestinal/Abdominal: Normal Exam Back: Normal Inspection Extremity: Normal ROM Neurological/Psych: Oriented x3, Normal Speech, Normal Cognition, Normal Cranial Nerves, No Cerebellar Signs Gait: Steady Other Neurological Findings: No Facial Palsy, No Tongue Deviation ED Course And Treatment - Laboratory Results Result Diagrams: 02/09/18 22:46 02/09/18 22:46 O2 Sat by Pulse Oximetry: 100 Medical Decision Making Medical Decision Makin yr old female p/w headache, CP, and given recent TIA, pt will likely require f/u with inpt team for further management of BP and 2nd trop. Neuro exam unremarkable. CT unremarkable- within 6 hour, SAH ruled out. labs unremarkable, imaging unremarkable. appreciate consult w/ Dr. King: to admit to his service, obs. Disposition - Disposition Disposition Time: 12:15 Condition: GOOD - Clinical Impression Clinical Impression: Hypertension, Chest pain
[2018-02-09 22:49] LABS: BASO % 0.4 % (0.0-2.0); EOS # 0.1 K/uL (0.0-0.7); EOS % 0.6 % (0.0-4.0); HEMOGLOBIN 13.3 g/dL (11.0-16.0); LYMPH # 2.4 K/uL (1.0-4.3); LYMPH % 22.7 % (20.0-40.0); MEAN CELL VOLUME 84.5 fL (81.0-99.0); MEAN CORPUSCULAR HEMOGLOBIN 29.1 pg (27.0-31.0); MEAN CORPUSCULAR HGB CONC 34.5 g/dL (33.0-37.0); MEAN PLATELET VOLUME 9.3 fL (7.2-11.7); MONO # 0.7 K/uL (0.0-0.8); MONO % 6.8 % (0.0-10.0); NEUT # 7.3 K/uL (1.8-7.0); NEUT % 69.5 % (50.0-75.0); NRBC % 0.1 % (0.0-2.0); RBC 4.55 Mil/uL (3.80-5.20); RED CELL DISTRIBUTION WIDTH 13.4 % (11.5-14.5); WHITE BLOOD COUNT 10.5 K/uL (4.8-10.8)
[2018-02-09 23:09] LABS: SQUAMOUS EPITHIAL < 1 /hpf (0-5); URINE BACTERIA OCC (<OCC); URINE BILIRUBIN NEGATIVE (NEGATIVE); URINE CLARITY Clear (Clear); URINE COLOR Straw (YELLOW); URINE GLUCOSE (UA) NORMAL (Normal); URINE PROTEIN NEGATIVE (NEGATIVE); URINE UROBILINOGEN NORMAL mg/dL (0.2-1.0)
[2018-02-09 23:09] LABS: ALB/GLOB RATIO 1.5 (1.0-2.1); ALBUMIN 4.4 g/dL (3.5-5.0); ALT/SGPT 34 U/L (9-52); AST/SGOT 28 U/L (14-36); BLOOD UREA NITROGEN 19 mg/dL (7-17); CALCIUM 9.4 mg/dl (8.6-10.4); GFR NON-AFRICAN AMERICAN > 60
[2018-02-09 23:15] LABS: URINE BLOOD TRACE (NEGATIVE); URINE LEUKOCYTE ESTERASE 1+ Leu/uL (Negative)
[2018-02-10 01:39] VITALS: RESP 20
--- NOTE | 2018-02-10 07:04 | CT ---
Date of service: 02/09/2018 PROCEDURE: CT HEAD WITHOUT CONTRAST. HISTORY: Hypertension. Headache. COMPARISON: CT head dated 01/25/2018 TECHNIQUE: Axial computed tomography images were obtained through the head/brain without intravenous contrast. Radiation dose: Total exam DLP = 828 mGy-cm. This CT exam was performed using one or more of the following dose reduction techniques: Automated exposure control, adjustment of the mA and/or kV according to patient size, and/or use of iterative reconstruction technique. FINDINGS: HEMORRHAGE: No intracranial hemorrhage. BRAIN: Mild age related generalized cerebral atrophy. Benign bilateral globus pallidus calcifications. VENTRICLES: Unremarkable. No hydrocephalus. CALVARIUM: Unremarkable. PARANASAL SINUSES: Unremarkable as visualized. No significant inflammatory changes. MASTOID AIR CELLS: Unremarkable as visualized. No inflammatory changes. OTHER FINDINGS: None. IMPRESSION: Mild age related generalized cerebral atrophy. Bilateral globus pallidus calcifications. If symptoms persists, consider correlation with MRI. These findings were preliminarily reported at 11:15 p.m. on 02/09/[address] Malena Veras from [facility].
[2018-02-10] MEDS: Enoxaparin 40 mg Syringe SC SCH (09:36)
[2018-02-10 13:50] LABS: CK-MB 0.24 ng/mL (0.0-3.38)
--- NOTE | 2018-02-10 17:18 | CARD ---
APPROVED REPORT Date of service: 02/09/2018 EKG Measurement Heart [id number] <Conclusion> Normal sinus rhythm Normal ECG
--- NOTE | 2018-02-10 21:36 | CP.PCM.HP ---
Past Patient History - Past Social History Smoking Status: Never Smoked - CARDIAC Hx Hypertension: Yes - MUSCULOSKELETAL/RHEUMATOLOGICAL Hx Falls: No - PSYCHIATRIC Hx Substance Use: No - SURGICAL HISTORY Other/Comment: BACK SURGERY 2003 - ANESTHESIA Hx Anesthesia: Yes Hx Anesthesia Reactions: No Hx Malignant Hyperthermia: No Has any member of the family had a problem w/ anesthesia?: Yes (SON HAS SOB W/ ANESTHESIA) Meds Allergies/Adverse Reactions: Allergies Allergy/AdvReac Type Severity Reaction Status Date / Time No Known Allergies Allergy Verified 02/09/18 20:48 Results - Vital Signs Recent Vital Signs: Last Vital Signs Temp 98.5 F 02/10/18 15:00 Pulse 64 02/10/18 15:00 Resp 20 02/10/18 15:00 BP 116/70 02/10/18 18:15 Pulse Ox 98 02/10/18 15:00 - Labs Result Diagrams: 02/09/18 22:46 02/09/18 22:46 Labs: Laboratory Results - last 24 hr 02/09/18 02/09/18 02/09/18 22:46 22:46 23:02 WBC 10.5 RBC 4.55 Hgb 13.3 Hct 38.4 MCV 84.5 MCH 29.1 MCHC 34.5 RDW 13.4 Plt Count 237 MPV 9.3 Neut % (Auto) 69.5 Lymph % (Auto) 22.7 [place] % (Auto) 6.8 Eos % (Auto) 0.6 Baso % (Auto) 0.4 Neut # (Auto) 7.3 H Lymph # (Auto) 2.4 [place] # (Auto) 0.7 Eos # (Auto) 0.1 Baso # (Auto) 0.0 Sodium 142 Potassium 4.0 Chloride 104 Carbon Dioxide 27 Anion Gap 14 BUN 19 H Creatinine 0.8 Est GFR ( Amer) > 60 Est GFR (Non-Af Amer) > 60 POC Glucose (mg/dL) Random Glucose 148 H Calcium 9.4 Total Bilirubin 0.3 AST 28 ALT 34 Alkaline Phosphatase 81 Total Creatine Kinase CK-MB (Mass) Troponin I < 0.0120 Total Protein 7.4 Albumin 4.4 Globulin 3.0 Albumin/Globulin Ratio 1.5 Urine Color Straw Urine Clarity Clear Urine pH 7.0 Ur Specific [place] 1.003 Urine Protein Negative Urine Glucose (UA) Normal Urine Ketones Negative Urine Blood Trace H Urine Nitrate Negative Urine Bilirubin Negative Urine Urobilinogen Normal Ur Leukocyte Esterase 1+ H Urine WBC (Auto) 6 H Urine RBC (Auto) 3 Ur Squamous Epith Cells < 1 Urine Bacteria Occ H 02/10/18 02/10/18 02/10/18 12:06 13:20 21:06 WBC RBC Hgb Hct MCV MCH MCHC RDW Plt Count MPV Neut % (Auto) Lymph % (Auto) [place] % (Auto) Eos % (Auto) Baso % (Auto) Neut # (Auto) Lymph # (Auto) [place] # (Auto) Eos # (Auto) Baso # (Auto) Sodium Potassium Chloride Carbon Dioxide Anion Gap BUN Creatinine Est GFR ( Amer) Est GFR (Non-Af Amer) POC Glucose (mg/dL) 95 Random Glucose Calcium Total Bilirubin AST ALT Alkaline Phosphatase Total Creatine Kinase 129 121 CK-MB (Mass) 0.24 Troponin I < 0.0120 Total Protein Albumin Globulin Albumin/Globulin Ratio Urine Color Urine Clarity Urine pH Ur Specific [place] Urine Protein Urine Glucose (UA) Urine Ketones Urine Blood Urine Nitrate Urine Bilirubin Urine Urobilinogen Ur Leukocyte Esterase Urine WBC (Auto) Urine RBC (Auto) Ur Squamous Epith Cells Urine Bacteria
[2018-02-10 21:45] LABS: CK-MB < 0.22 ng/mL (0.0-3.38)
[2018-02-11 08:42] LABS: CK-MB < 0.22 ng/mL (0.0-3.38)
[2018-02-11] MEDS: Enoxaparin 40 mg Syringe SC SCH (09:18)
[2018-02-11] MEDS ORDERED: Metoprolol Succinate 25 mg XL Tab PO SCH (10:00)
--- NOTE | 2018-02-11 11:03 | HP ---
Copied To: Kartik King MD Attending MD: Kartik King MD CHIEF COMPLAINT: Dizziness. HISTORY OF PRESENT ILLNESS: This is a 52-year-old female with history of hypertension, hyperlipidemia. The patient has been on blood pressure medications, and her blood pressure is widely fluctuating. She is not feeling well. Her blood pressure is good in the morning and noon time and it is high in the evening time. She takes lisinopril in the morning and metoprolol in the evening. She has headache, dizziness. She denies any history of syncope, loss of consciousness, seizure-like activity. She has palpitations at times. She gets pressure in the chest but no orthopnea, no PND, no leg swelling. No abdominal pain. There is no history of trauma or surgery. The patient's headache is on and off. This is mild to moderate in intensity, and her blood pressure was noted to be 200/100 when she came to emergency room on the day of admission, and she is hospitalized. She denies any history of dysuria, hematuria, pyuria. She denies any sneezing, itchy eyes, or itchy nose. PAST MEDICAL HISTORY: Hypertension. PAST SURGICAL HISTORY: Back surgery. SOCIAL HISTORY: Nonsmoker. Non-ETOH user. CURRENT MEDICATIONS: Lisinopril, metoprolol. PHYSICAL EXAMINATION: GENERAL: A middle-aged female in no acute distress. HEENT: Atraumatic and normocephalic. Negative pallor. Negative jaundice. Extraocular movements are intact. VITAL SIGNS: Blood pressure 144/79, pulse 80, respiratory rate 20, temperature 98.1. NECK: Supple. No JVD. No lymph nodes. No thyromegaly. No carotid bruit. CHEST: Chest wall: Bilateral symmetrical expansion. No tenderness. CVS: S1, S2 regular. LUNGS: Clear. No rales. No rhonchi. ABDOMEN: Soft. Nontender. Bowel sounds are positive. SKIN: No rashes. No bruises. No purpura. No petechiae. PELVIS AND RECTAL: Refused. EXTREMITIES: No clubbing, cyanosis, or edema. NETWORK SUPPORT TECHNICIAN: Awake, alert, oriented x3. ASSESSMENT: 1. Labile hypertension, poorly controlled hypertension. 2. Bradycardia. PLAN: Admit. Details orders written. Seen and examined. Kartik King MD
--- NOTE | 2018-02-11 15:32 | CP.PCM.PN ---
Subjective - Date & Time of Evaluation Date of Evaluation: 02/11/18 Time of Evaluation: 15:29 - Subjective Subjective: PT CLEARED FOR D/C HOME TODAY PER DR. KENNY. PT TO D/C HER METOPROLOL AT HOME AND ONLY CONTINUE HER LISINOPRIL AT HS (REFILL RX GIVEN). PT VERBALIZES UNDERSTANDING OF D/C INFORMATION AND F/U. NO FURTHER ORDERS. - SEGUIMIENTO CON EL DR. KENNY EN LA OFICINA DENTRO DE 5-7 PEREZ --- LLAME A LA OFICINA PARA HACER LAVELL LENO. -CONTINUAR MEDICAMENTOS EN EL HOGAR. -STOP TOMANDO LA METOPROLOL POR DR. KENNY. - SLO CONTINA TOMANDO LISINOPRIL 10 MG EN BEDTIME. -Para otras inquietudes o preguntas, contctese con el DR. KENNY. -FOLLOW UP WITH DR. KENNY IN THE OFFICE WITHIN 5-7 DAYS---CALL THE OFFICE TO MAKE AN APPOINTMENT. -CONTINUE HOME MEDICATIONS. -STOP TAKING THE METOPROLOL PER DR. KENNY. -ONLY CONTINUE TAKING LISINOPRIL 10 MG AT BEDTIME. -FOR FURTHER CONCERNS OR QUESTIONS, CONTACT DR. KENNY. Objective - Vital Signs/Intake and Output Vital Signs (last 24 hours): Temp Pulse Resp BP Pulse Ox 97.6 F 57 L 20 116/69 98 02/11/18 08:03 02/11/18 12:05 02/11/18 08:03 02/11/18 08:03 02/11/18 08:03 - Medications Medications: Current Medications Aspirin (Aspirin Chewable) 81 mg PO DAILY [facility] Last Admin: 02/11/18 09:17 Dose: 81 mg Enoxaparin Sodium (Lovenox) 40 mg SC DAILY [facility] Last Admin: 02/11/18 09:18 Dose: 40 mg Lisinopril (Zestril) 10 mg PO DAILY [facility] Last Admin: 02/11/18 09:17 Dose: 10 mg Pneumococcal Polyvalent Vaccine (Pneumovax 23 Vaccine) 0.5 ml IM .ONCE ONE Stop: 02/12/18 10:01 Rosuvastatin Calcium (Crestor) 20 mg PO [facility] Last Admin: 02/10/18 21:36 Dose: 20 mg - Labs Labs: 02/09/18 22:46 02/09/18 22:46
[2018-02-11 16:22] VITALS: BP 130/84; TEMP 97.9; O2SAT 99
[2018-02-11 16:39] VITALS: PULSE 58
--- NOTE | 2018-02-11 22:13 | CP.PCM.DIS ---
Provider - Provider Date of Admission: 02/10/18 00:10 Attending physician: Kartik King MD Hospital Course - Lab Results Lab Results: Most Recent Lab Values WBC 10.5 K/uL (4.8-10.8) 02/09/18 22:46 RBC 4.55 Mil/uL (3.80-5.20) 02/09/18 22:46 Hgb 13.3 g/dL (11.0-16.0) 02/09/18 22:46 Hct 38.4 % (34.0-47.0) 02/09/18 22:46 MCV 84.5 fL (81.0-99.0) 02/09/18 22:46 MCH 29.1 pg (27.0-31.0) 02/09/18 22:46 MCHC 34.5 g/dL (33.0-37.0) 02/09/18 22:46 RDW 13.4 % (11.5-14.5) 02/09/18 22:46 Plt Count 237 K/uL (130-400) 02/09/18 22:46 MPV 9.3 fL (7.2-11.7) 02/09/18 22:46 Neut % (Auto) 69.5 % (50.0-75.0) 02/09/18 22:46 Lymph % (Auto) 22.7 % (20.0-40.0) 02/09/18 22:46 [place] % (Auto) 6.8 % (0.0-10.0) 02/09/18 22:46 Eos % (Auto) 0.6 % (0.0-4.0) 02/09/18 22:46 Baso % (Auto) 0.4 % (0.0-2.0) 02/09/18 22:46 Neut # (Auto) 7.3 K/uL (1.8-7.0) H 02/09/18 22:46 Lymph # (Auto) 2.4 K/uL (1.0-4.3) 02/09/18 22:46 [place] # (Auto) 0.7 K/uL (0.0-0.8) 02/09/18 22:46 Eos # (Auto) 0.1 K/uL (0.0-0.7) 02/09/18 22:46 Baso # (Auto) 0.0 K/uL (0.0-0.2) 02/09/18 22:46 Sodium 142 mmol/L (132-148) 02/09/18 22:46 Potassium 4.0 mmol/L (3.6-5.2) 02/09/18 22:46 Chloride 104 mmol/L (98-107) 02/09/18 22:46 Carbon Dioxide 27 mmol/L (22-30) 02/09/18 22:46 Anion Gap 14 (10-20) 02/09/18 22:46 BUN 19 mg/dL (7-17) H 02/09/18 22:46 Creatinine 0.8 mg/dL (0.7-1.2) 02/09/18 22:46 Est GFR ( Amer) > 60 02/09/18 22:46 Est GFR (Non-Af Amer) > 60 02/09/18 22:46 POC Glucose (mg/dL) 95 mg/dL (65-110) 02/10/18 12:06 Random Glucose 148 mg/dL (65-105) H 02/09/18 22:46 Calcium 9.4 mg/dl (8.6-10.4) 02/09/18 22:46 Total Bilirubin 0.3 mg/dL (0.2-1.3) 02/09/18 22:46 AST 28 U/L (14-36) 02/09/18 22:46 ALT 34 U/L (9-52) 02/09/18 22:46 Alkaline Phosphatase 81 U/L (38-126) 02/09/18 22:46 Total Creatine Kinase 107 U/L (30-135) 02/11/18 07:37 CK-MB (Mass) < 0.22 ng/mL (0.0-3.38) 02/11/18 07:37 Troponin I < 0.0120 ng/mL (0.00-0.120) 02/11/18 07:37 Total Protein 7.4 g/dL (6.3-8.3) 02/09/18 22:46 Albumin 4.4 g/dL (3.5-5.0) 02/09/18 22:46 Globulin 3.0 gm/dL (2.2-3.9) 02/09/18 22:46 Albumin/Globulin Ratio 1.5 (1.0-2.1) 02/09/18 22:46 Urine Color Straw (YELLOW) 02/09/18 23:02 Urine Clarity Clear (Clear) 02/09/18 23:02 Urine pH 7.0 (5.0-8.0) 02/09/18 23:02 Ur Specific [place] 1.003 (1.003-1.030) 02/09/18 23:02 Urine Protein Negative mg/dL (NEGATIVE) 02/09/18 23:02 Urine Glucose (UA) Normal mg/dL (Normal) 02/09/18 23:02 Urine Ketones Negative mg/dL (NEGATIVE) 02/09/18 23:02 Urine Blood Trace (NEGATIVE) H 02/09/18 23:02 Urine Nitrate Negative (NEGATIVE) 02/09/18 23: Urine Bilirubin Negative (NEGATIVE) 02/09/18 23:02 Urine Urobilinogen Normal mg/dL (0.2-1.0) 02/09/18 23:02 Ur Leukocyte Esterase 1+ [place]/uL (Negative) H 02/09/18 23:02 Urine WBC (Auto) 6 /hpf (0-5) H 02/09/18 23:02 Urine RBC (Auto) 3 /hpf (0-3) 02/09/18 23:02 Ur Squamous Epith Cells < 1 /hpf (0-5) 02/09/18 23:02 Urine Bacteria Occ (<OCC) H 02/09/18 23:02 Discharge Plan - Discharge Medications Prescriptions: Lisinopril [Zestril] 10 mg PO HS #30 tab - Follow Up Plan Condition: GOOD Disposition: HOME/ ROUTINE Instructions: High Blood Pressure (DC), Chest Pain (DC), Low Salt Diet Additional Instructions: - SEGUIMIENTO CON EL DR. KING EN LA OFICINA DENTRO DE 5-7 PEREZ --- LLAME A LA OFICINA PARA HACER LAVELL LENO. -CONTINUAR MEDICAMENTOS EN EL HOGAR. -STOP TOMANDO LA METOPROLOL POR DR. KING. - SLO CONTINA TOMANDO LISINOPRIL 10 MG EN BEDTIME. -Para otras inquietudes o preguntas, contctese con el DR. KING. -FOLLOW UP WITH DR. KING IN THE OFFICE WITHIN 5-7 DAYS---CALL THE OFFICE TO MAKE AN APPOINTMENT. -CONTINUE HOME MEDICATIONS. -STOP TAKING THE METOPROLOL PER DR. KING. -ONLY CONTINUE TAKING LISINOPRIL 10 MG AT BEDTIME. -FOR FURTHER CONCERNS OR QUESTIONS, CONTACT DR. KING. Referrals: Kartik King MD [Staff Provider] -
--- NOTE | 2018-02-12 07:19 | DS ---
ADMISSION DIAGNOSIS: Uncontrolled hypertension. DISCHARGE DIAGNOSIS: Uncontrolled hypertension, bradycardia. HISTORY OF PRESENT ILLNESS: This is a 52-year-old female with history of multiple medical problems including hypertension. She came in with headache, dizziness, fluctuating blood pressure. The patient was admitted to she had prior emergency room visit when MRI being negative. The patient was admitted to the floor. She was started on lisinopril. Metoprolol was tapered and discontinued because of bradycardia. PHYSICAL EXAMINATION: VITAL SIGNS: Today, her blood pressure 130/84, pulse 61, respiratory rate 20, temperature 97.9. GENERAL: She is feeling better. She has been discharged on lisinopril, and cardiac enzymes x3 negative. MRI on previous examination was negative. EKG, sinus rhythm with no ST-T changes. She is feeling better. The patient is instructed strict diet compliance and exclusively lisinopril followup. Kartik King MD
[2018-02-12] MEDS ORDERED: Pneumococcal 23-Valent Vaccine IM ONE (10:00)
== END 2018-02-11 17:40 | disposition home or self-care (01) ==
LOC: C.ER 20:21 → C.9E 02-10 00:10 → C.6T 02-10 01:01
PROVIDERS: ADMIT Internal Medicine; ATTEND Internal Medicine
DX: I10 Essential (primary) hypertension (principal); Z86.73 Personal history of transient ischemic attack (TIA), and cerebral infarction without residual deficits; E78.5 Hyperlipidemia, unspecified; R07.89 Other chest pain
CPT/HCPCS: 36415; 70450; 80053; 81001; 82948; 84484; 85025; 93005; 94770; 99285; G0378; J1650

== ENCOUNTER 2018-06-29 19:37 | Emergency (ER) | payer OTHER ==
[2018-06-29 19:50] VITALS: TEMP 98
--- NOTE | 2018-06-29 20:16 | C.PDOC ---
Time Seen by Provider: 06/29/18 20:15 Chief Complaint (Nursing): High Blood Pressure Past Medical History Reviewed: Historical Data, Nursing Documentation, Vital Signs Vital Signs: Last Vital Signs Temp 98.0 F 06/29/18 19:47 Pulse 74 06/29/18 19:47 Resp 16 06/29/18 19:47 BP 163/104 H 06/29/18 19:47 Pulse Ox 100 06/29/18 19:47 - Medical History PMH: HTN Surgical History: Back Surgery Family History: States: No Known Family Hx - Social History Hx Tobacco Use: No Hx Alcohol Use: No Hx Substance Use: No - Immunization History Hx Tetanus Toxoid Vaccination: No Hx Influenza Vaccination: Yes Hx Pneumococcal Vaccination: No ED Course And Treatment O2 Sat by Pulse Oximetry: 100 Disposition Counseled Patient/Family Regarding: Studies Performed, Diagnosis - Disposition Disposition Time: 20:16 Forms: [employer] (Lebanese)
--- NOTE | 2018-06-29 20:26 | C.PDOC ---
History Of Present Illness Patient presents to the ER with a complaint of a headache since yesterday, states she felt her blood pressure was high. Patient was recently hospitalized in 02/10/19 for HTN and chest pain. Denies nausea, vomiting, or vision changes. Presently she states her headache has resolved since and is speaking in complete sentences. Time Seen by Provider: 06/29/18 20:15 Chief Complaint (Nursing): High Blood Pressure History Per: Patient History/Exam Limitations: no limitations Onset/Duration Of Symptoms: Days (Yesterday) Current Symptoms Are (Timing): Still Present Severity: Moderate Pain Scale Rating Of: 4 Preceeding Symptoms: None Associated Symptoms: denies: Blurred Vision, Nausea, Vomiting Recent travel outside of the [place]: No Past Medical History Reviewed: Historical Data, Nursing Documentation, Vital Signs Vital Signs: Last Vital Signs Temp 98.0 F 06/29/18 19:47 Pulse 76 06/29/18 20:21 Resp 16 06/29/18 19:47 BP 150/78 06/29/18 20:21 Pulse Ox 100 06/29/18 19:47 - Medical History PMH: HTN Surgical History: Back Surgery Family History: States: No Known Family Hx - Social History Hx Tobacco Use: No Hx Alcohol Use: No Hx Substance Use: No - Immunization History Hx Tetanus Toxoid Vaccination: No Hx Influenza Vaccination: Yes Hx Pneumococcal Vaccination: No Review Of Systems Constitutional: Negative for: Fever, Chills Eyes: Negative for: Vision Change Cardiovascular: Negative for: Chest Pain, Palpitations Respiratory: Negative for: Cough, Shortness of Breath Gastrointestinal: Negative for: Nausea, Vomiting Neurological: Positive for: Headache. Negative for: Weakness, Numbness Physical Exam - Physical Exam Appears: Non-toxic Skin: Warm, Dry Head: Normacephalic Eye(s): bilateral: Normal Inspection, PERRL, EOMI Oral Mucosa: Moist Neck: Trachea Midline, Supple Chest: Symmetrical, No Tenderness Cardiovascular: Rhythm Regular Respiratory: No Rales, No Rhonchi, No Wheezing Gastrointestinal/Abdominal: Soft, No Tenderness Extremity: Other (Moves all extremities) Neurological/Psych: Oriented x3, Other (No focal deficits) ED Course And Treatment - Laboratory Results Result Diagrams: 06/29/18 20:31 06/29/18 20:31 ECG: Interpreted By Me, Viewed By Me ECG Rhythm: Sinus Rhythm (75), Nonspecific Changes O2 Sat by Pulse Oximetry: 100 (room air) Pulse Ox Interpretation: Normal Progress Note: CT head and blood work ordered. Pt is headache free. Wants to go home Reevaluation Time: 21:44 Reassessment Condition: Improved Medical Decision Making Medical Decision Making: Upon provider reevaluation patient is feeling better, is medically stable, and requires no further treatment in the ED at this time. Patient will be discharged home . Counseling was provided and all questions were answered regarding diagnosis and need for follow up with dr galeano. There is agreement to discharge plan. Return if symptoms persist or worsen. Disposition Counseled Patient/Family Regarding: Studies Performed, Diagnosis, Need For Followup - Disposition Referrals: Arleth Parsons MD [Medical Doctor] - Disposition: HOME/ ROUTINE Disposition Time: 20:26 Condition: FAIR Additional Instructions: Please return if symptoms recur Instructions: Headache, Adult (DC) Forms: [facility] (Niuean) - Clinical Impression Clinical Impression: Hypertension, Headache - Scribe Statement The provider has reviewed the documentation as recorded by the Scribиван Dia All medical record entries made by the Scribe were at my direction and personally dictated by me. I have reviewed the chart and agree that the record accurately reflects my personal performance of the history, physical exam, medical decision making, and the department course for this patient. I have also personally directed, reviewed, and agree with the discharge instructions and disposition.
[2018-06-29 20:34] LABS: BASO # 0.1 K/uL (0.0-0.2); BASO % 0.9 % (0.0-2.0); EOS # 0.1 K/uL (0.0-0.7); EOS % 1.2 % (0.0-4.0); HEMOGLOBIN 13.3 g/dL (11.0-16.0); LYMPH # 3.2 K/uL (1.0-4.3); LYMPH % 40.4 % (20.0-40.0); MEAN CELL VOLUME 86.9 fL (81.0-99.0); MEAN CORPUSCULAR HEMOGLOBIN 28.9 pg (27.0-31.0); MEAN CORPUSCULAR HGB CONC 33.3 g/dL (33.0-37.0); MEAN PLATELET VOLUME 9.5 fL (7.2-11.7); MONO # 0.6 K/uL (0.0-0.8); MONO % 8.2 % (0.0-10.0); NEUT # 3.9 K/uL (1.8-7.0); NEUT % 49.3 % (50.0-75.0); RBC 4.61 Mil/uL (3.80-5.20); RED CELL DISTRIBUTION WIDTH 13.4 % (11.5-14.5); WHITE BLOOD COUNT 7.9 K/uL (4.8-10.8)
[2018-06-29 20:45] LABS: BLOOD UREA NITROGEN 15 mg/dL (7-17); CALCIUM 9.3 mg/dl (8.6-10.4); GFR NON-AFRICAN AMERICAN > 60
[2018-06-29 21:46] VITALS: O2SAT 100
[2018-06-29 22:09] VITALS: BP 137/82; PULSE 66; RESP 14
--- NOTE | 2018-06-30 08:22 | CT ---
Date of service: 06/29/2018 PROCEDURE: CT HEAD WITHOUT CONTRAST. HISTORY: Headache COMPARISON: None available. TECHNIQUE: Axial computed tomography images were obtained through the head/brain without intravenous contrast. Radiation dose: Total exam DLP = 880.04 mGy-cm. This CT exam was performed using one or more of the following dose reduction techniques: Automated exposure control, adjustment of the mA and/or kV according to patient size, and/or use of iterative reconstruction technique. FINDINGS: HEMORRHAGE: No intracranial hemorrhage. BRAIN: Normal amezcua-white matter differentiation and overall density are appreciated throughout the cerebrum and cerebellum with the brainstem appearing unremarkable as well. There is no mass effect. Bilateral basal ganglia calcifications are reiterated. There is no suspicious extra-axial fluid collection and the midline brain anatomy appears diffusely unremarkable. VENTRICLES: Unremarkable. No hydrocephalus. CALVARIUM: Unremarkable. PARANASAL SINUSES: Unremarkable as visualized. No significant inflammatory changes. MASTOID AIR CELLS: Unremarkable as visualized. No inflammatory changes. OTHER FINDINGS: None. IMPRESSION: Stable noncontrast head CT no interval acute intracranial findings as discussed above. Follow-up CT or MRI are available as clinically warranted.
== END 2018-06-29 22:11 | disposition home or self-care (01) ==
LOC: C.ER 19:37
DX: I10 Essential (primary) hypertension (principal); R51 Headache

== ENCOUNTER 2018-10-12 21:13 | Emergency (ER) | payer OTHER ==
[2018-10-12 21:23] VITALS: RESP 20; TEMP 98.3
[2018-10-12] MEDS ORDERED: NIFEdipine 60 mg ER Tab PO STA ×2 (22:03→22:24)
[2018-10-12 22:17] LABS: BASO # 0.1 K/uL (0.0-0.2); BASO % 0.7 % (0.0-2.0); EOS # 0.1 K/uL (0.0-0.7); EOS % 1.2 % (0.0-4.0); HEMOGLOBIN 12.8 g/dL (11.0-16.0); LYMPH # 3.4 K/uL (1.0-4.3); LYMPH % 40.1 % (20.0-40.0); MEAN CELL VOLUME 84.7 fL (81.0-99.0); MEAN CORPUSCULAR HEMOGLOBIN 29.2 pg (27.0-31.0); MEAN CORPUSCULAR HGB CONC 34.5 g/dL (33.0-37.0); MEAN PLATELET VOLUME 8.8 fL (7.2-11.7); MONO # 0.5 K/uL (0.0-0.8); MONO % 6.1 % (0.0-10.0); NEUT # 4.5 K/uL (1.8-7.0); NEUT % 51.9 % (50.0-75.0); NRBC % 0.1 % (0.0-2.0); RBC 4.4 Mil/uL (3.80-5.20); RED CELL DISTRIBUTION WIDTH 13.3 % (11.5-14.5); WHITE BLOOD COUNT 8.6 K/uL (4.8-10.8)
[2018-10-12 22:29] LABS: ALB/GLOB RATIO 1.2 (1.0-2.1); ALBUMIN 4.6 g/dL (3.5-5.0); ALT/SGPT 37 U/L (9-52); AST/SGOT 35 U/L (14-36); BLOOD UREA NITROGEN 16 mg/dL (7-17); CALCIUM 9.6 mg/dl (8.6-10.4); GFR NON-AFRICAN AMERICAN > 60
[2018-10-12 22:41] LABS: B-TYPE NATRIURETIC PEPTIDE 96.9 pg/mL (0-900)
[2018-10-12 23:08] VITALS: BP 141/76; PULSE 146; O2SAT 100
--- NOTE | 2018-10-13 03:59 | C.PDOC ---
History Of Present Illness 53 year old male presents to the ED for evaluation of feeling flushed. Patient has history of HTN and think her blood pressure is elevated. Patient reports taking her morning mediation only half and takes Lozartan at night. Patient d enies fever, chills, headache, visual changes, neck pain, rash, CP, SOB, palpitations, weakness, numbness. Time Seen by Provider: 10/12/18 21:53 Chief Complaint (Nursing): High Blood Pressure History Per: Patient History/Exam Limitations: no limitations Onset/Duration Of Symptoms: Hrs Current Symptoms Are (Timing): Still Present Recent travel outside of the [place]: No Additional History Per: Patient Past Medical History Reviewed: Historical Data, Nursing Documentation, Vital Signs Vital Signs: Last Vital Signs Temp 98.3 F 10/12/18 21:16 Pulse 146 H 10/12/18 23:08 Resp 20 10/12/18 23:08 BP 141/76 10/12/18 23:08 Pulse Ox 100 10/12/18 23:08 Primary Care Provider: Jeferson Goldsmith Jr. - Medical History PMH: HTN Surgical History: Back Surgery Family History: States: Unknown Family Hx - Social History Hx Tobacco Use: No Hx Alcohol Use: No Hx Substance Use: No - Immunization History Hx Tetanus Toxoid Vaccination: No Hx Influenza Vaccination: Yes Hx Pneumococcal Vaccination: No Review Of Systems Constitutional: Negative for: Fever, Chills Cardiovascular: Negative for: Chest Pain, Palpitations Respiratory: Negative for: Shortness of Breath Gastrointestinal: Negative for: Nausea, Vomiting, Abdominal Pain Skin: Negative for: Rash Neurological: Negative for: Weakness, Numbness, Headache Physical Exam - Physical Exam Appears: Non-toxic, No Acute Distress, Other (anxious) Skin: Normal Color, Warm, Dry, No Rash Head: Atraumatic, Normacephalic Eye(s): bilateral: Normal Inspection, PERRL, EOMI Neck: Normal ROM, No Midline Cervical Tenderness, Supple Chest: Symmetrical Cardiovascular: Rhythm Regular Respiratory: Normal Breath Sounds, No Rales, No Rhonchi, No Wheezing Gastrointestinal/Abdominal: Soft, No Tenderness, No Guarding, No Rebound Extremity: Normal ROM, No Tenderness, No Swelling Neurological/Psych: Oriented x3, Normal Speech, Normal Cognition Gait: Steady ED Course And Treatment - Laboratory Results Result Diagrams: 10/12/18 22:11 10/12/18 22:11 Lab Results: Troponin I < 0.0120 ng/mL (0.00-0.120) 10/12/18 22:11 NT-Pro-B Natriuret Pep 96.9 pg/mL (0-900) 10/12/18 22:11 Total Bilirubin 0.3 mg/dL (0.2-1.3) 10/12/18 22:11 AST 35 U/L (14-36) 10/12/18 22:11 ALT 37 U/L (9-52) 10/12/18 22:11 Alkaline Phosphatase 94 U/L (38-126) 10/12/18 22:11 Total Protein 8.4 g/dL (6.3-8.3) H 10/12/18 22:11 Albumin 4.6 g/dL (3.5-5.0) 10/12/18 22:11 Globulin 3.8 gm/dL (2.2-3.9) 10/12/18 22:11 Albumin/Globulin Ratio 1.2 (1.0-2.1) 10/12/18 22:11 O2 Sat by Pulse Oximetry: 100 (ON RA) Pulse Ox Interpretation: Normal Disposition Doctor Will See Patient In The: Office Counseled Patient/Family Regarding: Studies Performed, Diagnosis - Disposition Disposition: HOME/ ROUTINE Disposition Time: 00:00 Condition: GOOD Forms: [facility] (Irish) - Clinical Impression Clinical Impression: Hypertension - Scribe Statement The provider has reviewed the documentation as recorded by the Scribe Thor Cabrera All medical record entries made by the Scribe were at my direction and personally dictated by me. I have reviewed the chart and agree that the record accurately reflects my personal performance of the history, physical exam, medical decision making, and the department course for this patient. I have also personally directed, reviewed, and agree with the discharge instructions and disposition.
--- NOTE | 2018-10-13 08:24 | RAD ---
Chest x-ray single frontal view HISTORY: Shortness of breath. Comparison: 01/25/2018 Findings: Mild venous congestion. Tortuous aorta. Heart size within limits. Degenerative changes in the spine. Impression: Mild venous congestion. Tortuous aorta.
--- NOTE | 2018-10-14 01:11 | CARD ---
APPROVED REPORT Date of service: 10/12/2018 EKG Measurement Heart [id number] <Conclusion> Sinus tachycardia Possible Left atrial enlargement Nonspecific ST abnormality Abnormal ECG
== END 2018-10-12 23:53 | disposition home or self-care (01) ==
LOC: C.ER 21:13
DX: I10 Essential (primary) hypertension (principal)